=== PATIENT | male | born 1985 | race Caucasian/White ===

== ENCOUNTER 2019-09-11 20:17 | Inpatient (IN) ==
[2019-09-11] MEDS ORDERED: Naloxone 0.4 MG/ML INJ IVP PRN (23:18)
[2019-09-11] MEDS ORDERED: 0.9 % Sodium Chloride 1,000 ML IVC SCH (23:30)
[2019-09-11] MEDS ORDERED: Azithromycin 500 MG in 0.9 % Sodium Chloride 250 ML IVPB SCH (23:45)
[2019-09-11] MEDS ORDERED: Vasopressin 40 UNIT in D5% in Water 100 ML IVC SCH (23:45)
[2019-09-11] MEDS: Piperacillin/Tazobactam 3.375 GM in 0.9 % Sodium Chloride Mini Bag 100 ML IVPB SCH (23:48)
[2019-09-12] MEDS ORDERED: Norepinephrine 4 MG/254 ML IV.SOLN IVC SCH (00:15)
[2019-09-12] MEDS ORDERED: Perflutren Lipid Microsphere 1.3 ML in 0.9 % Sodium Chloride 8.7 ML IVP PRN (02:05)
[2019-09-12] MEDS: Norepinephrine 8 MG in 0.9 % Sodium Chloride 250 ML IVC SCH ×3 (03:38→14:09)
[2019-09-12] MEDS: Phenylephrine 10 MG in 0.9 % Sodium Chloride 250 ML IVC SCH ×2 (03:39→05:20)
[2019-09-12] MEDS ORDERED: Aspirin 325 MG TABLET PO ONE (03:55)
[2019-09-12] MEDS ORDERED: Vancomycin 1,250 MG/262.5 ML IV.SOLN IVPB SCH (04:00)
[2019-09-12 04:15] LABS: Hemoglobin 14.1 g/dL (12.9-16.9); Nucleated Red Blood Cells 0.1 /100 WBC (0); Platelet Count 180 K/mcL (140-400); Segmented Neutrophils % 83.5 %
[2019-09-12 04:16] LABS: Basophils # 0.1 K/mcL (0.0-0.2); Basophils % 0.3 %; Eosinophils # 0.3 K/mcL (0.0-0.6); Hematocrit 43.9 % (37.5-50.1); Immature Granulocytes % 3.4 % (0-4); Lymphocytes # 0.6 K/mcL (0.6-4.6); Lymphocytes % 1.8 %; Mean Corpuscular HGB Conc 32.1 g/dL (31.6-35.5); Mean Corpuscular Hemoglobin 30.2 pg (28.0-33.3); Mean Platelet Volume 10.5 fL (9.4-12.4); Red Blood Count 4.67 M/mcL (4.19-5.50); Red Cell Distribution Width 13.2 % (11.5-14.5)
[2019-09-12 04:18] LABS: INR 1.4; Monocytes # 3.1 K/mcL (0.0-1.3); Neutrophils # 26.2 K/mcL (1.6-8.9); Prothrombin Time 15.7 Seconds (9.4-12.1)
[2019-09-12 04:19] LABS: White Blood Count 31.4 K/mcL (4.3-11.1)
[2019-09-12 04:25] LABS: Adenovirus Not Detected (Not Detect); Bordetella Pertussis Not Detected (Not Detect); Chlamydophila pneumoniae Not Detected (Not Detect); Coronavirus 229E Not Detected (Not Detect); Coronavirus HKU1 Not Detected (Not Detect); Coronavirus NL63 Not Detected (Not Detect); Coronavirus OC43 Not Detected (Not Detect); Human Metapneumovirus Not Detected (Not Detect); Human Rhinovirus/Enterovirus Not Detected (Not Detect); Influenza A Subtype 2009 H1 Not Detected (Not Detect); Influenza B Not Detected (Not Detect); Mycoplasma pneumoniae Not Detected (Not Detect); Parainfluenza Virus 1 Not Detected (Not Detect); Parainfluenza Virus 2 Not Detected (Not Detect); Parainfluenza Virus 3 Not Detected (Not Detect); Parainfluenza Virus 4 Not Detected (Not Detect); Respiratory Syncytial Virus Not Detected (Not Detect)
[2019-09-12 04:33] LABS: Alanine Aminotransferase 39 Units/L (7-52); Albumin 2.9 g/dL (3.5-5.7); Albumin/Globulin Ratio 1.5 (1.1-2.2); Alkaline Phosphatase 93 Units/L (34-104); Aspartate Amino Transferase 51 Units/L (13-39); BUN/Creatinine Ratio 15 (6-26); Bilirubin,Total 1.9 mg/dL (0.3-1.0); Blood Urea Nitrogen 21 mg/dL (6-20); Calcium 7.3 mg/dL (8.6-10.3); Carbon Dioxide 14 mEq/L (23-29); Chloride 106 mEq/L (98-107); Globulin 1.9 g/dL (2.4-3.5); Glucose 98 mg/dL (70-105); Osmolality,Calculated 281 (280-300); Potassium 4.3 mEq/L (3.5-5.1); Sodium 134 mEq/L (136-145); Total Protein 4.8 g/dL (6.4-8.9); eGFR For African Americans > 60 (> 60); eGFR For Non-African Americans 57 (> 60)
[2019-09-12] MEDS: Vancomycin Oral Soln 125 MG/2.5 ML UDC GTUBE SCH ×2 (04:39→08:56)
[2019-09-12] MEDS ORDERED: Sodium Bicarbonate 50 MEQ/50 ML VIAL IVP ONE (04:49)
[2019-09-12 04:57] LABS: Platelet Estimate Normal (Normal)
[2019-09-12] MEDS ORDERED: Sodium Bicarbonate 50 MEQ in 0.45 % Sodium Chloride 1,000 ML IVC SCH (05:00)
[2019-09-12] MEDS ORDERED: MetroNIDAZOLE 500 MG/100 ML 500 MG/100 ML BAG IVPB SCH (05:00)
[2019-09-12] MEDS ORDERED: Phenylephrine 50 MG in 0.9 % Sodium Chloride 250 ML IVC SCH (06:45)
[2019-09-12] MEDS: Piperacillin/Tazobactam 3.375 GM in 0.9 % Sodium Chloride Mini Bag 100 ML IVPB SCH (08:55)
[2019-09-12] MEDS ORDERED: Hydrocortisone Sodium Succ 100 MG/2 ML VIAL IVP SCH (09:00)
[2019-09-12 11:23] LABS: VBG HCO3 16 mEq/L (21-27); VBG PCO2 38 mmHg (41-51); VBG PH 7.24 pH Units (7.32-7.42); VBG PO2 123 mmHg (25-50)
[2019-09-12] MEDS ORDERED: Vancomycin 1 EACH in 0.9 % Sodium Chloride 250 ML IVPB PRN (12:00)
[2019-09-12] MEDS ORDERED: *HR* LORazepam 2 MG/ML VIAL IVP PRN ×2 (14:38→16:01)
[2019-09-12] MEDS ORDERED: *HR* FentaNYL (PF) 100 MCG/2 ML VIAL IVP PRN ×2 (14:40→16:01)
[2019-09-12] MEDS ORDERED: Aminoglycoside Consult 1 EACH MC ONE (15:09)
[2019-09-12] MEDS ORDERED: Glycopyrrolate 0.2 MG/ML VIAL IVP PRN ×2 (15:45→16:00)
[2019-09-12] MEDS ORDERED: Ipratropium Neb 0.5 MG NEBULIZER IH PRN (16:01)
[2019-09-12] MEDS ORDERED: BACLOFEN IT SCH (16:01)
[2019-09-12] MEDS ORDERED: Baclofen 10 MG TABLET GTUBE PRN (16:01)
[2019-09-12] MEDS ORDERED: cloNIDine HCL 0.1 MG TABLET GTUBE PRN (16:01)
[2019-09-12] MEDS ORDERED: Lactobacillus 1 EACH CAP.SPRINK GTUBE SCH (21:00)
[2019-09-12] MEDS ORDERED: Sennosides/Docusate Sodium TABLET PO SCH (21:00)
[2019-09-12] MEDS: Glycopyrrolate 0.2 MG/ML VIAL IVP PRN (21:25)
[2019-09-12] MEDS: Metoclopramide 10 MG/10 ML UD.LIQ GTUBE SCH (21:28)
[2019-09-12] MEDS: Chlorhexidine Rinse 15 ML MOUTHWASH PO SCH (21:28)
[2019-09-12] MEDS: OLOPATADINE HCL OP SCH (21:28)
[2019-09-12] MEDS: Sennosides/Docusate Sodium TABLET PO SCH (21:29)
[2019-09-13 07:04] VITALS: BP 100/65
[2019-09-13] MEDS: Glycopyrrolate 0.2 MG/ML VIAL IVP PRN (08:00)
[2019-09-13] MEDS ORDERED: Fluticasone Propionate Nasal 50 MCG/SPRAY BOTTLE NS SCH (09:00)
[2019-09-13] MEDS ORDERED: FLUoxetine HCl Oral Soln 20 MG/5 ML UDC GTUBE SCH (09:00)
[2019-09-13] MEDS ORDERED: Loratadine 10 MG TABLET GTUBE SCH (09:00)
[2019-09-13] MEDS ORDERED: Bisacodyl 10 MG RECTAL SUPPOSITORY RC SCH (09:00)
[2019-09-13] MEDS ORDERED: Petrolatum, White OINT.PACK TP PRN (09:00)
[2019-09-13] MEDS ORDERED: Psyllium 1 PACKET POWD.PACK GTUBE SCH (09:00)
[2019-09-13] MEDS: Sennosides/Docusate Sodium TABLET PO SCH (09:34)
[2019-09-13] MEDS: Metoclopramide 10 MG/10 ML UD.LIQ GTUBE SCH (09:35)
[2019-09-13] MEDS: Chlorhexidine Rinse 15 ML MOUTHWASH PO SCH (09:35)
[2019-09-13] MEDS ORDERED: Scopolamine Patch 1.5 MG PATCH.TD72 TD SCH (10:00)
[2019-09-13] MEDS: OLOPATADINE HCL OP SCH (11:25)
== END 2019-09-13 15:10 | disposition hospice, home (50) | DRG 871 ==
LOC: ICNU → SUATTDRO 23:18 → 2ANU 09-12 16:32
PROVIDERS: ADMIT Student in an Organized Health Care Education/Training Program; ATTEND Internal Medicine